=== PATIENT | male | born 2000 | race Caucasian/White ===

== ENCOUNTER 2022-08-06 00:49 | Emergency (ER) | payer SELFPAY ==
--- NOTE | ~2022-08-06 | XR_ITS ---
EXAMINATION: XR foot LT min 3V DATE: 08/06/2022 01:54 INDICATION: Left foot injury and pain. TECHNIQUE: 3 views of left foot were obtained. COMPARISON: None. FINDINGS: Bone alignment is normal. No fracture. There is mild osteoarthritis of first metatarsophala ngeal joint and some of the interphalangeal joints. IMPRESSION: 1. Mild polyarticular osteoarthritis. Reviewed, dictated and finalized at location A. NEY MECHANIC
[2022-08-06 00:54] VITALS: BP 153/74; PULSE 57; RESP 18; TEMP 37.4; O2SAT 99
--- NOTE | 2022-08-06 01:35 | ED.LOWEXIN ---
HPI - Extremity Injury (Lower) General Chief Complaint: Extremity Injury, Lower Stated Complaint: L foot injury Time Seen by Provider: 08/06/22 01:27 Source: patient Mode of arrival: ambulatory Limitations: no limitations History of Present Illness HPI Narrative: Patient is a 22-year-old male who presents the ED with report of left foot pain. Patient reports he excellently dropped a heavy metal table saw onto his left foot yesterday. He complains of pain and swelling to his dorsal foot, near his anterior ankle. He is able to ambulate, but has pain with this. No other injuries. No numbness, tingling. Review of Systems Review of Systems: SKIN: Reports swelling to left dorsal foot. MUSCULOSKELETAL: Reports pain to left dorsal foot. NEUROLOGIC: Denies tingling, numbness, or weakness. All systems reviewed & are unremarkable except as noted in HPI and below PMFSH Past Medical History Medical History (Updated 08/06/22 @ 01:54 by Ndiia Ball PA-C) No pertinent past medical history Surgical History Surgical History (Updated 08/06/22 @ 01:36 by Nidia Ball PA-C) No pertinent past surgical history Social History Social History (Updated 08/06/22 @ 01:36 by Nidia Ball PA-C) Smoking status: Never smoker Exam Narrative: GENERAL: Well appearing, obese, non-toxic, in no acute distress. HEAD: Normocephalic, atraumatic. NECK: Supple. No adenopathy, no masses. RESPIRATORY: Airway patent, respirations nonlabored. CARDIOVASCULAR: Regular rate and rhythm without murmurs, rubs, or gallops. Pedal pulses 2+ and equal bilaterally. MUSCULOSKELETAL: Moves all extremities. Strength/ROM intact without gross deformities. Area of swelling and tenderness to palpation over dorsal L foot just distal to anterior ankle. SKIN: Warm, dry, normal color. No rashes. NEURO: A&O X3. Speech clear. Cranial nerves II-XII grossly intact. No ataxic movements. PSYCHIATRIC: Appropriate mood and affect. Normal interaction. Course Vital Signs Vital signs: Vital Signs Temperature 99.3 F 08/06/22 00:54 Pulse Rate 57 L 08/06/22 00:54 Respiratory Rate 18 08/06/22 00:54 Blood Pressure 153/74 H 08/06/22 00:54 Pulse Oximetry 99 08/06/22 00:54 Oxygen Delivery Room Air 08/06/22 00:54 Temperature 98.3 F 08/06/22 03:01 Pulse Rate 80 08/06/22 03:01 Respiratory Rate 16 08/06/22 03:01 Blood Pressure 126/70 08/06/22 03:01 Pulse Oximetry 100 08/06/22 03:01 Oxygen Delivery Room Air 08/06/22 00:54 MDM - Extremity Injury (Lower) MDM Narrative Medical decision making narrative: Patient's injury is consistent with musculoskeletal etiology. No signs of neurologic or vascular compromise on physical examination. Compartments are soft without signs of compartment syndrome. XR L foot w/o acute osseous abnormality. Pain is consistent with exam and injury. Patient is felt to be stable for discharge home and further outpatient management and treatment. Roger wrap applied. Discussed RICE treatment and reasons to return. Patient agrees with plan. Medical Records Attestation: I reviewed the patient's medical records. Imaging Data Attestation: I personally reviewed and interpreted this imaging study as follows: Radiologist's impression: STAT RAD L Foot: No displaced fracture or dislocation identified. Dorsal soft tissue swelling. No incidental findings. Discharge Plan Discharge Clinical Impression: Sprain of left foot Qualifiers: Encounter type: initial encounter Qualified Code(s): S93.602A - Unspecified sprain of left foot, initial encounter Patient Disposition: Home, Self-Care Condition: Stable Instructions: Antibiotic Form, Foot Sprain (ED), P.R.I.C.E. Treatment (ED) Additional Instructions: Elevate left foot, ice, Roger bandage as tolerated for compression and support, Tylenol and ibuprofen for discomfort. Follow-up with primary care doctor for further evaluation if needed. Return if you exper
[2022-08-06 03:01] VITALS: BP 126/70; PULSE 80; RESP 16; TEMP 36.8; O2SAT 100
== END 2022-08-06 03:03 | disposition home or self-care (01) ==
LOC: ANHED 02:02
PROVIDERS: Emergency Provider General Practice; PCP Pediatrics
DX: S63.602A Unspecified sprain of left thumb, initial encounter (principal); W20.8XXA Other cause of strike by thrown, projected or falling object, initial encounter
CPT/HCPCS: 73630; 99283

== ENCOUNTER 2023-11-14 22:45 | Emergency (ER) | payer OTHER, SELFPAY ==
--- NOTE | ~2023-11-14 | XR_ITS ---
Left foot Technique: AP, oblique, and lateral views were obtained. Clinical History: Pain Findings: No acute fracture or dislocation is seen. Osseous alignment is anatomic. Joint spaces are p reserved without erosive or degenerative change. Soft tissues are unremarkable. Impression: Unremarkable left foot radiographs. Reviewed, dictated and finalized at location . RAM PARAPROFESSIONAL Impression: Unremarkable left foot radiographs.
--- NOTE | ~2023-11-14 | XR_ITS ---
EXAMINATION: XR ankle LT min 3V DATE: 11/14/2023 22:57 INDICATION: Left ankle pain and swelling. Fall. TECHNIQUE: 3 views of left ankle were obtained. COMPARISON: Left foot radiographs 08/06/2022 FINDINGS: Bone alignment is normal. No fracture. There is mild osteoarthritis of talonavicular joint. There is ankle soft tissue swelling. IMPRESSION: 1. No fracture. Reviewed, dictated and finalized at location E. DEVELOPER [employer] IMPRESSION: 1. No fracture.
[2023-11-14 22:46] VITALS: BP 145/59; PULSE 75; RESP 18; TEMP 36.6; O2SAT 99
--- NOTE | 2023-11-15 00:56 | ED.LOWEXIN ---
HPI - Extremity Injury (Lower) General Chief Complaint: Extremity Injury, Lower Stated Complaint: L ankle injury Time Seen by Provider: 11/15/23 00:55 Source: patient and family (mom) Mode of arrival: ambulatory Limitations: no limitations History of Present Illness HPI Narrative: 23yo male presents with L ankle pain. He jumped up while playing basketball and twisted it when he landed. He thinks possible eversion at the time though not certain. Tried taking 4 Motrin. Hx of sprains several years ago but no surgical intervention. No paresthesias. He is also complaining of left mid-foot pain. Related Data Allergies Allergy/AdvReac Type Severity Reaction Status Date / Time No Known Allergies Allergy Verified 11/15/23 01:00 [facility] Past Medical History Medical History No pertinent past medical history Surgical History Surgical History No pertinent past surgical history Social History Social History (Updated 08/06/22 @ 01:36 by Nidia Ball PA-C) Smoking status: Never smoker Exam Narrative: GENERAL: Well-appearing, well-nourished, and in no acute distress. HEAD: Normocephalic, atraumatic. EYES: Non injected, non icteric ENT: Nares clear, no rhinorrhea or epistaxis. NECK: Supple. CHEST: Speaking in full sentences. No respiratory distress. HEART: Regular rate and rhythm. Strong DP pulse in L foot. ABDOMEN: Soft, nondistended. EXTREMITIES: 4/5 strength with flexion/extension/eversion/inversion of left ankle, limited secondary to pain. Mild malloelar swelling. Warm and well perfused. SKIN: Warm, dry, no rash. No ecchymosis. NEURO: No focal deficits. Alert and oriented. Sensation intact to gross touch throughout. PSYCH: Normal mood and affect. Course Vital Signs Vital signs: Vital Signs Temperature 97.9 F 11/14/23 22:46 Pulse Rate 75 11/14/23 22:46 Respiratory Rate 18 11/14/23 22:46 Blood Pressure 145/59 H 11/14/23 22:46 Pulse Oximetry 99 11/14/23 22:46 Oxygen Delivery Room Air 11/14/23 22:46 Temperature 97.9 F 11/14/23 22:46 Pulse Rate 62 11/15/23 02:03 Respiratory Rate 17 11/15/23 02:03 Blood Pressure 113/58 L 11/15/23 02:03 Pulse Oximetry 98 11/15/23 02:03 Oxygen Delivery Room Air 11/15/23 00:57 MDM - Extremity Injury (Lower) MDM Narrative Medical decision making narrative: Patient presents with left ankle pain while playing basketball. Possibly landed on everted foot but not certain. Already trialed 4 Motrin. hx of sprains but no prior fracture or surgical intervention. Complaining of ankle pain but also mid foot pain. Neurovascularly intact but initial images don't capture mid foot so will obtain additional plain film of foot. Patient given analgesic medication. No fracture. Discharged in stable condition. Differential Diagnosis Differential diagnosis: Likely ankle sprain and strain, ankle fracture and other (considered Lis-Franc injury) Imaging Data Attestation: I personally reviewed and interpreted this imaging study as follows: My impression: No acute fracture/dislocation on my interpretation of ankle or foot. Radiologist's impression: No fracture. Unremarkable left foot radiographs. Discharge Plan Discharge Clinical Impression: Ankle sprain and strain, Pain of left midfoot Patient Disposition: Home, Self-Care Condition: Stable Instructions: Antibiotic Form, Ankle Sprain (DC) Additional Instructions: You can use the mnemonic R-I-C-E (rest, ice, compression, elevation) to help with symptoms. This should improve with time. Use the medications to help with pain. They are safe to take, including if desire to take together. Follow up with your primary care physician if not improving. Return to the ED if new/worsening symptoms Prescriptions: New acetaminophen 500 mg capsule 1,000 mg PO Q6H PRN (R
[2023-11-15 00:57] VITALS: BP 122/74; PULSE 70; RESP 15; O2SAT 99
[2023-11-15] MEDS: HYDROcodone/acetaminophen (*CRX) 5-325 MG TABLET 1 TAB PO (01:08)
[2023-11-15] MEDS: ACETAMINOPHEN 325 MG TABLET 650 MG PO (01:08)
[2023-11-15 02:03] VITALS: BP 113/58; PULSE 62; RESP 17; O2SAT 98
== END 2023-11-15 02:05 | disposition home or self-care (01) ==
PROVIDERS: Emergency Provider Student in an Organized Health Care Education/Training Program; PCP Pediatrics
DX: S93.402A Sprain of unspecified ligament of left ankle, initial encounter (principal); S96.912A Strain of unspecified muscle and tendon at ankle and foot level, left foot, initial encounter; M79.672 Pain in left foot; X50.9XXA Other and unspecified overexertion or strenuous movements or postures, initial encounter; Y93.67 Activity, basketball
CPT/HCPCS: 73610; 73630; 99283; A9270

== ENCOUNTER 2024-06-30 18:27 | Emergency (ER) | payer OTHER, SELFPAY ==
[2024-06-30 18:33] VITALS: BP 117/76; PULSE 63; RESP 16; TEMP 37.1; O2SAT 100
--- NOTE | 2024-06-30 18:38 | ED.UPPEXIN ---
HPI - Extremity Injury (Upper) General Chief Complaint: Extremity Injury, Upper Stated Complaint: Right Shoulder Pain Time Seen by Provider: 06/30/24 18:39 Source: patient Mode of arrival: ambulatory Limitations: no limitations History of Present Illness HPI narrative: 23-year-old male presented for complaint of right shoulder pain after injury 6 days ago. He states he believes he hurt the shoulder after lifting a 200 lb object with a coworker while at work. States it feels 'stiff' down to the mid forearm. Endorses full Range of motion at the shoulder, but pain with movements. Denies radiating pain to the hand, numbness, tingling or weakness of the extremity. Currently rates pain 03/02. Taking ibuprofen and Tylenol once a day. Related Data Allergies Allergy/AdvReac Type Severity Reaction Status Date / Time No Known Allergies Allergy Verified 06/30/24 18:32 Review of Systems Review of Systems: CONSTITUTIONAL: Denies body aches, fever, chills CARDIOVASCULAR: Denies chest pain, palpitations, or edema. RESPIRATORY: Denies cough or dyspnea. SKIN: Denies rash, itching, or wounds. MUSCULOSKELETAL: Reports right shoulder pain NEUROLOGIC: Denies headache, numbness, tingling, or weakness. All systems reviewed & are unremarkable except as noted in HPI and below PMFSH Past Medical History Medical History No pertinent past medical history Surgical History Surgical History No pertinent past surgical history Social History Social History Smoking status: Never smoker Comments At time of signature, I have reviewed and agree with nursing past medical, surgical, social and family history unless otherwise noted. Please see nursing chart for further information. There is no relevant family history pertinent to the presenting complaint Exam Narrative: GENERAL: Well-appearing CHEST: Speaks in full sentences. No respiratory distress. HEART: Regular rate and rhythm. Normal and equal peripheral pulses. EXTREMITIES: RUE has normal strength and sensation, normal range of motion at shoulder but endorses pain with movement beyond 90 degrees. Tender with palpation over AC joint. No ecchymosis, No open wounds, skin tenting, or obvious deformity; alignment normal, pulse palpable and equal bilaterally, skin warm, dry, pink. Capillary refill less than 3 seconds. SKIN: Warm, dry NEURO: Alert and oriented x3. PSYCH: Normal mood and affect Course Course Emergency Course: Patient is aware of diagnosis, understands and agrees to treatment plan. Anticipatory guidance given. Patient agrees to follow-up as directed and is aware of reasons to seek care at the emergency department. Portions of this record may have been created with voice recognition software Level of Care: Express Care Visit Vital Signs Vital signs: Vital Signs Temperature 98.7 F 06/30/24 18:33 Pulse Rate 63 06/30/24 18:33 Respiratory Rate 16 06/30/24 18:33 Blood Pressure 117/76 06/30/24 18:33 Pulse Oximetry 100 06/30/24 18:33 Oxygen Delivery Room Air 06/30/24 18:33 Temperature 98.7 F 06/30/24 18:33 Pulse Rate 63 06/30/24 18:33 Respiratory Rate 16 06/30/24 18:33 Blood Pressure 117/76 06/30/24 18:33 Pulse Oximetry 100 06/30/24 18:33 Oxygen Delivery Room Air 06/30/24 18:33 Reviewed MDM - Extremity Injury (Upper) MDM Narrative Medical decision making narrative: Discussed physical exam findings. Reviewed Rxs. Advised supportive measures and signs/symptoms to go to the ER. Pt is appropriate for outpt treatment and f/u with pcp. Differential Diagnosis Differential diagnosis: Likely other (Shoulder dislocation, clavicle fracture, humerus fracture, scapular fracture, acromioclavicular joint injury, rotator cuff tear, bicep tendon rupture, tricep tendon rup
== END 2024-06-30 18:54 | disposition home or self-care (01) ==
PROVIDERS: Emergency Provider Nurse Practitioner Family
DX: M25.511 Pain in right shoulder (principal)
CPT/HCPCS: 99213; G0463